=== PATIENT | male | born 1970 | race Two or more races ===

== ENCOUNTER 2021-04-28 10:30 | Inpatient (IN) | payer OTHER ==
[~2021-04-28] VITALS: Ht 188 cm; Wt 92.1 kg
[2021-04-28] MEDS ORDERED: ZESTRIL20 MG PO (16:29)
[2021-04-28] MEDS ORDERED: ATORVASTATIN CA20 MG PO (16:30)
[2021-04-28] MEDS ORDERED: GLUMETZA500 MG PO (16:30)
[2021-05-05] MEDS ORDERED: GABAPENTIN300 M2 (15:06)
[2021-05-05] MEDS ORDERED: DOLOGEN 325-11 EACH (15:06)
[2021-05-05] MEDS ORDERED: PANTOPRAZOLE SO40 MG (15:06)
[2021-05-05] MEDS ORDERED: BISACODYL5 MG (15:06)
== END 2021-05-06 12:10 | disposition home or self-care (01) | DRG 331 ==
LOC: O/R 05-03 06:45 → SURH 05-03 10:30
PROVIDERS: ADMIT Colon & Rectal Surgery; ATTEND Colon & Rectal Surgery
PROC: 0DTN4ZZ Resection of Sigmoid Colon, Percutaneous Endoscopic Approach (ICD-10-PCS; 2021-05-03)
PROC: 0DJD8ZZ Inspection of Lower Intestinal Tract, Via Natural or Artificial Opening Endoscopic (ICD-10-PCS; 2021-05-03)
PROC: 3E0F7SF Introduction of Other Gas into Respiratory Tract, Via Natural or Artificial Opening (ICD-10-PCS; 2021-05-03)
PROC: 0DTP4ZZ Resection of Rectum, Percutaneous Endoscopic Approach (ICD-10-PCS; principal; 2021-05-03 11:45)
DX: K57.32 Diverticulitis of large intestine without perforation or abscess without bleeding (principal); I10 Essential (primary) hypertension; E11.9 Type 2 diabetes mellitus without complications; Z20.822 Contact with and (suspected) exposure to COVID-19; Z79.4 Long term (current) use of insulin

== ENCOUNTER 2023-05-15 13:59 | Emergency (ER) | payer OTHER ==
[~2023-05-15] VITALS: Ht 180.3 cm; Wt 99.8 kg
[~2023-05-15 13:59] MED LIST: ATORVASTATIN CA20 MG PO; BISACODYL5 MG; DOLOGEN 325-11 EACH; GABAPENTIN300 M2; GLUMETZA500 MG PO; PANTOPRAZOLE SO40 MG; ZESTRIL20 MG PO
[2023-05-15 18:41] LABS: HEMOGLOBIN 14.4 g/dL (13-16.00); MEAN CELL VOLUME 90.6 fL (80.0-100.00); MEAN CORPUSCULAR HEMOGLOBIN 30.5 pg (27.00-32.0); MEAN CORPUSCULAR HGB CONC 33.6 g/dl (32.0-36.0); PLATELET COUNT 236 K/uL (150-450); RED BLOOD COUNT 4.74 M/uL (4.00-6.00); RED CELL DISTRIBUTION WIDTH 13.3 % (11.5-14.5)
[2023-05-15 19:15] LABS: ALBUMIN 3.6 gm/dL (3.4-5.0); BILIRUBIN TOTAL 1.13 mg/dL (0.3-1.2); CALCIUM 9.3 mg/dL (8.5-10.1); CREATININE SERUM 1.03 mg/dL (0.70-1.30); GFR 74.98; GLOBULINA 4.1 G/DL (2.4-3.5); POTASSIUM 3.99 mEq/L (3.5-5.1); TOTAL PROTEIN 7.7 gm/dL (6.4-8.2)
[2023-05-15 19:27] LABS: ob NEGATIVE (NEGATIVE)
[2023-05-15 19:28] LABS: URINE APPEARANCE Clear; URINE BILIRRUBIN Negative (NEGATIVE); URINE BLOOD Small; URINE COLOR Yellow; URINE GLUCOSE Negative (NEGATIVE); URINE LEUKOCYTE Negative; URINE NITRATE Negative; URINE PROTEIN Negative (NEGATIVE); URINE UROBILINOGEN 0.2 E.U./dl
[2023-05-15 19:29] LABS: URINE BACTERIA 11.3 uL (0.0-1933); URINE RBC 26.2 uL (0.0-20.8)
[2023-05-15 19:30] LABS: URINE EPITHELIAL CELLS 0.9 uL (0.0-38.8)
[2023-05-15] MEDS ORDERED: ANALPRAM HC 2.530 GM RECTAL (21:08)
== END 2023-05-15 17:38 | disposition home or self-care (01) ==
LOC: ER 13:59
PROVIDERS: General Practice
DX: K62.5 Hemorrhage of anus and rectum (principal); I10 Essential (primary) hypertension; Z91.013 Allergy to seafood
CPT/HCPCS: 36415; 74177; Q9965

== ENCOUNTER 2023-05-22 06:10 | Day surgery (SDC) | payer OTHER ==
[~2023-05-22 06:10] MED LIST changes: +ANALPRAM HC 2.530 GM RECTAL
== END 2023-05-22 11:45 | disposition home or self-care (01) ==
LOC: AMB-ENDOS 06:10
PROVIDERS: ATTEND Colon & Rectal Surgery
DX: K63.5 Polyp of colon (principal); K62.1 Rectal polyp; K57.32 Diverticulitis of large intestine without perforation or abscess without bleeding; K64.8 Other hemorrhoids; Z91.013 Allergy to seafood